=== PATIENT | female | born 1955 | race Caucasian/White ===

== ENCOUNTER → 2022-11-16 | Outpatient (CLI) | payer MEDICARE, OTHER ==
[~2022-11-16] MED LIST: DENOSUMAB 60 MG/ML 1 ML SYRINGE SQ NR
[2022-11-16 13:11] VITALS: BP 170/84; PULSE 102; RESP 15; TEMP 97.6
== END ==
LOC: PROCWHC3 12:55
PROVIDERS: ATTEND Nurse Practitioner Family
DX: M81.0 Age-related osteoporosis without current pathological fracture (principal)
CPT/HCPCS: 96372; J0897